=== PATIENT | male | born 1950 | race Caucasian/White ===

== ENCOUNTER 2021-07-09 21:12 | Observation (INO) | payer OTHER ==
[2021-07-09 21:35] VITALS: BMI 28.0
[2021-07-09 22:33] LABS: BASO % 0.5 % (0-2.0); EOS % 1.5 % (0-4.5); HEMATOCRIT 43.9 % (35.4-49); HEMOGLOBIN 13.5 GM/dL (11.7-16.9); LYMPH % 20.3 % (8-40); MCH 21.8 pg (25.7-33.7); MCHC 30.8 g/dl (32.0-35.9); MEAN CELL VOLUME 70.9 fl (80-96); MEAN PLT VOLUME 9.8 fl (7.5-11.1); MONO % 12.9 % (3.8-10.2); NEUT % 64.8 % (42.8-82.8); PLATELET COUNT 155 10^3/uL (134-434); RBC 6.19 M/mm3 (4.00-5.60); RDW 14.3 % (11.9-15.9); WHITE BLOOD COUNT 6.1 K/mm3 (4.0-10.0)
[2021-07-09 22:41] LABS: INR 1.21 (0.83-1.09)
[2021-07-09 22:44] LABS: ACTIVATED PTT 27.6 SECONDS (25.2-36.5)
[2021-07-09 22:56] LABS: CHLORIDE 107 mmol/L (98-107); SODIUM 142 mmol/L (136-145)
[2021-07-09 22:58] LABS: CALCIUM 8.8 mg/dL (8.5-10.1)
[2021-07-09 23:00] LABS: ALBUMIN 3.6 g/dl (3.4-5.0); ANION GAP 10 MMOL/L (8-16); CO2 26 mmol/L (21-32); GLUCOSE,RANDOM 79 mg/dL (74-106)
[2021-07-09 23:02] LABS: CREATININE 1.2 mg/dL (0.55-1.3); SGOT/AST 90 U/L (15-37); SGPT/ALT 76 U/L (13-61)
[2021-07-09 23:04] LABS: BILIRUBIN,TOTAL 1.1 mg/dL (0.2-1); TOT PROT 6.7 g/dl (6.4-8.2)
[2021-07-09 23:05] LABS: ALK PHOS 87 U/L (45-117)
[2021-07-09 23:13] LABS: BLOOD UREA NITROGEN 19.7 mg/dL (7-18)
[2021-07-09 23:45] LABS: ANISOCYTOSIS 2+; MACROCYTOSIS 0; OVALOCYTE 1+; PLATELET ESTIMATE DECREASED; TARGET CELLS 2+; TEAR DROP CELLS 1+
[2021-07-10 05:27] VITALS: TEMP 98.1
[2021-07-10] MEDS ORDERED: PIPERACILLIN/TAZOB 4.5 GM 4.5 GM/100 ML BAG IVPB ONE (06:30)
[2021-07-10 09:07] LABS: HEMATOCRIT 42.9 % (35.4-49); HEMOGLOBIN 13.4 GM/dL (11.7-16.9); MCHC 31.1 g/dl (32.0-35.9); MEAN CELL VOLUME 70.6 fl (80-96); MEAN PLT VOLUME 10.1 fl (7.5-11.1); PLATELET COUNT 154 10^3/uL (134-434); RBC 6.08 M/mm3 (4.00-5.60); RDW 14.3 % (11.9-15.9); WHITE BLOOD COUNT 5.2 K/mm3 (4.0-10.0)
[2021-07-10 09:57] LABS: CHLORIDE 107 mmol/L (98-107); SODIUM 141 mmol/L (136-145)
[2021-07-10] MEDS ORDERED: ASPIRIN 81 MG CHEWABLE TABLETS PO SCH (10:00)
[2021-07-10] MEDS ORDERED: ENOXAPARIN NA (PORCINE) 40 MG/0.4 ML DISP.SYRIN SQ SCH (10:00)
[2021-07-10 10:07] LABS: ALBUMIN 3.5 g/dl (3.4-5.0); BLOOD UREA NITROGEN 15.5 mg/dL (7-18); CALCIUM 8.5 mg/dL (8.5-10.1); CO2 24 mmol/L (21-32); GLUCOSE,RANDOM 80 mg/dL (74-106); MAGNESIUM 2.1 mg/dL (1.8-2.4)
[2021-07-10 10:11] LABS: ALK PHOS 79 U/L (45-117); BILIRUBIN,TOTAL 1.5 mg/dL (0.2-1); CREATININE 1.1 mg/dL (0.55-1.3); HDL CHOLESTEROL 40 mg/dL (40-60); N-TERMINAL BNP 75.6 pg/ml (5-125); PHOSPHOROUS 3.1 mg/dL (2.5-4.9); SGOT/AST 81 U/L (15-37); SGPT/ALT 71 U/L (13-61); TOT PROT 6.4 g/dl (6.4-8.2)
[2021-07-10 10:16] LABS: LDL CHOLESTEROL (ONLY SJRH) 59 mg/dL (5-100)
[2021-07-10 10:18] LABS: ANION GAP 10 MMOL/L (8-16); CHOLESTEROL 104 mg/dL (50-200); TRIGLYCERIDES 54 mg/dL (0-150)
[2021-07-10] MEDS ORDERED: guaiFENesin 200 MG/10 ML 10 ML UNIT-DOSE CUPS PO PRN (11:16)
[2021-07-10] MEDS ORDERED: ASPIRIN 81 MG CHEWABLE TABLETS ONE (11:36)
[2021-07-10] MEDS ORDERED: ENOXAPARIN NA (PORCINE) 40 MG/0.4 ML DISP.SYRIN SQ ONE (11:37)
[2021-07-10 13:48] VITALS: BP 105/76; PULSE 90
== END 2021-07-10 16:45 | disposition home or self-care (01) ==
LOC: JER 21:12 → JERBED 07-10 01:16
PROVIDERS: ADMIT Internal Medicine
PROC: 3E013GC Introduction of Other Therapeutic Substance into Subcutaneous Tissue, Percutaneous Approach (ICD-10-PCS; principal; 2021-07-10)
DX: R07.89 Other chest pain (principal); R06.00 Dyspnea, unspecified; R05.9 Cough, unspecified; R94.5 Abnormal results of liver function studies; I10 Essential (primary) hypertension; I25.2 Old myocardial infarction; I25.10 Atherosclerotic heart disease of native coronary artery without angina pectoris; Z98.61 Coronary angioplasty status
CPT/HCPCS: 36415; 71046-TC-FY; 71275-TC; 80053; 80061; 83036; 83735; 83880; 84100; 84443; 84484; 85025; 85027; 85610; 85730; 86850; 86900; 86901; 93005; 93010; 93306-TC; 96372; 99285-25; C9803; G0378; U0003; U0005